=== PATIENT | female | born 1950 ===

== ENCOUNTER 2022-03-04 10:30 | Inpatient (IN) | payer OTHER ==
[~2022-03-04] VITALS: Ht 165.1 cm; Wt 72.6 kg
[2022-03-04] MEDS ORDERED: PANTOPRAZOLE SO40 MG PO (13:01)
[2022-03-04] MEDS ORDERED: LOSARTAN POTASS50 MG PO (13:01)
[2022-03-04] MEDS ORDERED: FENOFIBRATE150 MG PO (13:02)
[2022-03-04] MEDS ORDERED: PENTOXIFYLLINE400 MG PO (13:02)
[2022-03-04] MEDS ORDERED: FISH OIL + D31 EACH PO (13:03)
[2022-03-04] MEDS ORDERED: ECOTRIN81 MG PO (13:03)
[2022-03-04] MEDS ORDERED: SIMVASTATIN10 MG PO (13:03)
[2022-03-04] MEDS ORDERED: D3 + K2 DOTS 11 EACH PO (13:04)
[2022-03-07] MEDS ORDERED: ROSUVASTATIN CA20 MG (08:14)
[2022-03-07] MEDS ORDERED: VITAMIN D3250 MCG (08:14)
[2022-03-07] MEDS ORDERED: FENOFIBRATE48 MG (08:14)
[2022-03-07] MEDS ORDERED: FISH OIL 1,0001 EAC4 (08:14)
[2022-03-07] MEDS ORDERED: PREMARIN30 GM (08:14)
[2022-03-08] MEDS ORDERED: Tylenol #3 PO (09:05)
[2022-03-08] MEDS ORDERED: NAPR500T14 PO (09:05)
== END 2022-03-08 11:24 | disposition home or self-care (01) | DRG 748 ==
LOC: OB/GYN 03-07 05:14 → O/R 03-07 05:14 → SURH 03-07 07:00 → OB/GYN 03-07 13:11
PROVIDERS: ADMIT Obstetrics & Gynecology; ATTEND Obstetrics & Gynecology
PROC: 0USG0ZZ Reposition Vagina, Open Approach (ICD-10-PCS; 2022-03-07)
PROC: 0JQC0ZZ Repair Pelvic Region Subcutaneous Tissue and Fascia, Open Approach (ICD-10-PCS; principal; 2022-03-07 07:00)
DX: N81.11 Cystocele, midline (principal); N81.6 Rectocele; Z20.822 Contact with and (suspected) exposure to COVID-19